=== PATIENT | female | born 1940 | race Caucasian/White ===

== ENCOUNTER 2019-11-24 10:44 | Outpatient (CLI) | payer MEDICARE, OTHER ==
[2019-11-24] MEDS ORDERED: FLUT9.9S NS (11:17)
[2019-11-24] MEDS ORDERED: CETI-158 PO (11:17)
[2019-11-24] MEDS ORDERED: HYDR25TA6 PO (11:17)
[2019-11-24] MEDS ORDERED: LOSA25TA25 PO (11:17)
[2019-11-24] MEDS ORDERED: VIT1CAPS11 PO (11:17)
[2019-11-24 12:02] LABS: ALANINE AMINOTRANSFERASE 15 U/L (12-78); ALBUMIN 3.5 g/dL (3.4-5.0); ANION GAP 5 mmol/L (5-15); CALCIUM 8.3 mg/dL (8.5-10.1); CHLORIDE 110 mmol/L (98-107); CREATININE 0.81 mg/dL (0.55-1.02)
[2019-11-24 12:04] LABS: ALKALINE PHOSPHATASE 105 U/L (45-117); BILIRUBIN,TOTAL 0.9 mg/dL (0.2-1.0); TOTAL PROTEIN 7.2 g/dL (6.4-8.2)
[2019-11-24 12:15] LABS: BASOPHILS # (AUTO) 0.02 x10^3/uL (0-0.1); BASOPHILS % (AUTO) 0 % (0-1); EOSINOPHILS # (AUTO) 0.22 x10^3/uL (0-0.4); EOSINOPHILS % (AUTO) 5 % (1-7); LYMPHOCYTES % (AUTO) 31 % (22-44); MD NO; MEAN CORPUSCULAR HEMOGLOBIN 31.6 pg (27.0-34.8); MEAN CORPUSCULAR HGB CONC 33.2 g/dL (32.4-35.8); MEAN CORPUSCULAR VOLUME 95.3 fL (80-100); MEAN PLATELET VOLUME 9.4 fL (7.4-10.4); MONOCYTES # (AUTO) 0.49 x10^3/uL (0.2-0.8); MONOCYTES % (AUTO) 11 % (2-9); NEUTROPHILS # (AUTO) 2.41 x10^3/uL (1.8-6.8); NEUTROPHILS % (AUTO) 53 % (42-75); PLATELET COUNT 211 x10^3/uL (130-400); RED BLOOD COUNT 4.28 x10^6/uL (3.82-5.3); RED CELL DISTRIBUTION WIDTH 14.1 % (9.6-15.2)
== END 2019-11-24 23:59 | disposition home or self-care (01) ==
LOC: STAR 10:44
PROVIDERS: ATTEND Obstetrics & Gynecology
DX: Z01.818 Encounter for other preprocedural examination (principal); M41.84 Other forms of scoliosis, thoracic region; I45.10 Unspecified right bundle-branch block
CPT/HCPCS: 36415; 71046; 80053; 85025; 93005; U0001-CS

== ENCOUNTER 2019-12-01 12:34 | Observation (INO) | payer MEDICARE ==
[~2019-12-01] VITALS: Ht 162.6 cm; Wt 69.0 kg
[~2019-12-01 12:34] MED LIST: CETI-158 PO; FLUT9.9S NS; HYDR25TA6 PO; LOSA25TA25 PO; VIT1CAPS11 PO
[2019-12-01] MEDS ORDERED: LACTATED RINGERS 1,000 ML IV SCH ×2 (12:54→18:00)
[2019-12-01] MEDS ORDERED: CHLORHEXIDINE 15 ML UDC MM ONE (13:00)
[2019-12-01] MEDS ORDERED: LIDOCAINE-MPF 1%, 2ML INFIL ONE (13:00)
[2019-12-01 13:03] VITALS: BP 131/83
[2019-12-01] MEDS ORDERED: CHLORHEXIDINE 15 ML UDC ONE (13:09)
[2019-12-01] MEDS ORDERED: FENTANYL PF 250 MCG/5ML ONE (13:22)
[2019-12-01] MEDS ORDERED: HYDROmorphone 1 MG/ML, 1ML INJ IVPush PRN (14:30)
[2019-12-01] MEDS ORDERED: PROMETHAZINE 25 MG SUPP PR PRN (14:30)
[2019-12-01] MEDS ORDERED: FENTANYL PF 100 MCG/2ML IV PRN (14:30)
[2019-12-01] MEDS ORDERED: PROMETHAZINE 25 MG/ML, 1ML IVPush PRN (14:30)
[2019-12-01] MEDS ORDERED: DIAZEPAM 5 MG/ML, 2ML IVPush PRN (14:30)
[2019-12-01] MEDS ORDERED: hydrALAzine 20 MG/ML, 1ML IV PRN (14:30)
[2019-12-01] MEDS ORDERED: LABETALOL 5MG/ML, 20ML IV PRN (14:30)
[2019-12-01] MEDS ORDERED: ACETAMINOPHEN 325 MG TABLET PO PRN (14:30)
[2019-12-01] MEDS ORDERED: OXYcodone 5 MG/5 ML ORAL.SOL UDC PO PRN (14:30)
[2019-12-01] MEDS ORDERED: ONDANSETRON 2MG/ML, 2ML IVPush PRN (14:30)
[2019-12-01] MEDS ORDERED: LIDOCAINE PF 2%, 5ML ONE (14:34)
[2019-12-01] MEDS ORDERED: BACITRACIN 50,000 UNIT ONE (14:50)
[2019-12-01] MEDS ORDERED: BUPIVACAINE/PF-EPI 0.25% 1:200K INFIL ONE (14:56)
[2019-12-01] MEDS ORDERED: PROPOFOL 10 MG/ML, 20ML ONE (15:29)
[2019-12-01] MEDS ORDERED: ROCURONIUM 10MG/ML,5ML ONE (15:29)
[2019-12-01] MEDS ORDERED: DEXAMETHASONE 4 MG/ML, 1ML ONE (15:29)
[2019-12-01] MEDS ORDERED: GLYCOPYRROLATE 0.2MG/1ML, 5ML ONE (15:29)
[2019-12-01] MEDS ORDERED: NEOSTIGMINE 1 MG/ML, 10ML ONE (15:29)
[2019-12-01] MEDS ORDERED: CEFAZOLIN 1,000 MG ONE (15:29)
[2019-12-01] MEDS ORDERED: ONDANSETRON 2MG/ML, 2ML ONE (15:29)
[2019-12-01] MEDS ORDERED: SUCCINYLCHOLINE 20 MG/ML, 10ML ONE (15:29)
[2019-12-01] MEDS ORDERED: morphine SULFATE 10 MG/ML, 1ML IV PRN (18:00)
[2019-12-01] MEDS ORDERED: HYDROcodone/APAP 5/325 TABLET PO PRN (18:00)
[2019-12-01] MEDS ORDERED: HYDROmorphone 1 MG/ML, 1ML INJ IV PRN (18:30)
[2019-12-01] MEDS ORDERED: FENTANYL PF 100 MCG/2ML IVPush PRN (18:30)
[2019-12-01] MEDS ORDERED: IBUPROFEN 600 MG TABLET PO SCH (21:00)
[2019-12-02] MEDS ORDERED: FLUTICASONE NASAL SPRAY 16GM NAS SCH (09:00)
[2019-12-02] MEDS ORDERED: LOSARTAN 25MG TABLET PO SCH (09:00)
[2019-12-02] MEDS ORDERED: CETIRIZINE 10 MG TABLET PO SCH (09:00)
[2019-12-02] MEDS ORDERED: HYDROCHLOROTHIAZIDE 25 MG TABLET PO SCH (09:00)
[2019-12-02] MEDS ORDERED: PRESERVISION AREDS HOMEMEDPO SCH (09:00)
== END 2019-12-01 19:30 | disposition home or self-care (01) ==
LOC: OUT 12:34 → 4NE 17:31 → OUT 17:37
PROVIDERS: ADMIT Obstetrics & Gynecology; ATTEND Obstetrics & Gynecology
DX: N81.10 Cystocele, unspecified (principal); N81.6 Rectocele; I10 Essential (primary) hypertension
CPT/HCPCS: 36415; 57260; 86850; 86900; G0378; J0330; J0690; J1100; J2405; J2704; J2710; J3010; J7120